=== PATIENT | male | born 1965 | race Caucasian/White ===

== ENCOUNTER 2021-02-05 06:04 | Inpatient (IN) | payer MEDICARE, MEDICAID ==
[~2021-02-05] VITALS: Ht 167.6 cm; Wt 90.8 kg
[~2021-02-05 06:04] MED LIST: AMLO-483 PO; ASPI81CH59 PO; DOXY-340 PO; ENAL5TAB10 PO; INSU100I26 SC; INSU1INJ19 SC; SIMV-8 PO
[2021-02-05] MEDS ORDERED: CELECOXIB 100 MG CAP PO ONE (07:00)
[2021-02-05] MEDS ORDERED: ACETAMINOPHEN IV 1000 MG/100ML (10MG/ML) IV ONE (07:00)
[2021-02-05] MEDS ORDERED: PREGABALIN CAPSULE 75 MG CAP PO ONE (07:00)
[2021-02-05] MEDS ORDERED: ceFAZolin 1GM/50ML 100 ML IV ONE (07:10)
[2021-02-05] MEDS ORDERED: BUPIVACAINE HCL 0.25% P/F 10 ML VIAL ONE ×2 (07:13→10:52)
[2021-02-05] MEDS ORDERED: MIDAZOLAM HCL 1MG/1ML-2 ML VIAL ONE (12:00)
[2021-02-05] MEDS ORDERED: fentaNYL CITRATE 100 MCG/2 ML VL ONE (12:02)
[2021-02-05] MEDS ORDERED: PROPOFOL 10 MG/ML 20 ML IV ONE (12:18)
[2021-02-05] MEDS ORDERED: VANCOMYCIN HCL 1000 MG VL ONE (13:14)
[2021-02-05] MEDS ORDERED: DEXTROSE (50%) 50ML SYRG IV PRN ×2 (14:00→16:45)
[2021-02-05] MEDS: SODIUM CHLOR 0.9% PF (SALINE LOCK) 10ML VIAL/SYR IV SCH ×2 (14:00→22:00)
[2021-02-05] MEDS ORDERED: ONDANSETRON HCL 4 MG/2 ML VIAL IV PRN ×2 (14:00→14:15)
[2021-02-05] MEDS ORDERED: NITROGLYCERIN 0.4 MG SL TAB SL PRN (14:00)
[2021-02-05] MEDS ORDERED: LACTATED RINGER'S 1,000 ML IV SCH (14:00)
[2021-02-05] MEDS ORDERED: MORPHINE SULF INJ 2 MG/ML SYRINGE 1ML IV PRN (14:00)
[2021-02-05] MEDS ORDERED: HYDROmorphone HCL 2 MG/ML VL IV PRN (14:15)
[2021-02-05] MEDS ORDERED: amLODIPine BESYLATE 5 MG TAB PO SCH (15:30)
[2021-02-05 15:53] LABS: Basophils # (auto) 0 10 ^3/uL (0-0.2); Eosinophils # (auto) 0.1 10 ^3/uL (0-0.8); Monocytes # (auto) 0.4 10 ^3/uL (0-1.3); Neutrophils # (auto) 2.7 10 ^3/uL (1.6-8.6); Nucleated Red Blood Cells % 0.1 %
[2021-02-05 15:55] LABS: Basophils % (auto) 0.7 % (0.0-2.0); Hematocrit 34.8 % (41.0-53.0); Hemoglobin 11.5 g/dL (13.5-17.5); Lymphocytes # (auto) 1.7 10 ^3/uL (0.4-5.4); Lymphocytes % (auto) 35.4 % (10.0-50.0); Mean Corpuscular Hemoglobin 26.1 pg (28.0-32.0); Mean Corpuscular Hgb Conc. 33.2 g/dL (32.0-36.0); Mean Corpuscular Volume 78.5 fL (80.0-100.0); Monocytes % (auto) 7.6 % (0.0-12.0); Neutrophils % (auto) 54.3 % (37.0-80.0); Platelet Count (auto) 203 10^3/uL (140-450); Red Blood Cells 4.43 10^6/uL (4.5-5.90); Red Cell Distribution Width 15.8 % (11.8-14.3); White Blood Cell 4.9 10^3/uL (4.4-10.8)
[2021-02-05 16:16] LABS: BUN/Creatinine Ratio 27.6; Calcium 8.9 mg/dL (8.5-10.1)
[2021-02-05] MEDS ORDERED: amLODIPine BESYLATE 5 MG TAB PO ONE (16:45)
[2021-02-05] MEDS ORDERED: SODIUM ZIRCONIUM CYCL 10 GM PAK PO ONE (16:45)
[2021-02-05] MEDS ORDERED: DEXTROSE (50%) 50ML SYRG IV ONE (16:45)
[2021-02-05] MEDS ORDERED: InsuLIN REG 1unit/0.01ml Soln (100units/ml) IV ONE (16:45)
[2021-02-05] MEDS ORDERED: CALCIUM GLUC 1,000mg/50ml-NS 50 ML IV ONE (16:45)
[2021-02-05 17:00] VITALS: BP 142/78
[2021-02-05] MEDS: InsuLIN REG 1unit/0.01ml Soln (100units/ml) SC SCH ×2 (17:00→21:50)
[2021-02-05] MEDS ORDERED: InsuLIN REG 1unit/0.01ml Soln (100units/ml) SC SCH ×2 (17:00→22:00)
[2021-02-05] MEDS ORDERED: ACCU-CHEK COMFORT CURVE STRIP VI SCH ×2 (17:00)
[2021-02-05] MEDS: ACCU-CHEK COMFORT CURVE STRIP VI SCH ×2 (17:00→21:59)
[2021-02-05] MEDS: ceFAZolin 1GM/50ML 50 ML IV SCH (18:38)
[2021-02-05] MEDS: OXYCODONE W/ ACETAMINOPHEN 5/325MG TABLET PO PRN (20:00)
[2021-02-05 20:55] VITALS: BP 156/92
[2021-02-05] MEDS: DOXYCYCLINE 100 MG TAB/CAP PO SCH (21:59)
[2021-02-05] MEDS ORDERED: INSULIN GLARGINE 35 UNIT SC SCH (22:00)
[2021-02-05] MEDS ORDERED: ENALAPRIL MALEATE 10 MG TAB PO SCH (22:00)
[2021-02-05] MEDS: ATORVASTATIN 20 MG TAB PO SCH (22:00)
[2021-02-05] MEDS: DOCUSATE SOD 100 MG CAP PO SCH (22:00)
[2021-02-06] MEDS: ceFAZolin 1GM/50ML 50 ML IV SCH ×2 (00:19→06:27)
[2021-02-06 05:00] VITALS: BP 159/83
[2021-02-06 05:45] LABS: Hematocrit 35.1 % (41.0-53.0); Hemoglobin 12.1 g/dL (13.5-17.5)
[2021-02-06] MEDS: InsuLIN REG 1unit/0.01ml Soln (100units/ml) SC SCH ×4 (06:26→22:34)
[2021-02-06] MEDS: ACCU-CHEK COMFORT CURVE STRIP VI SCH ×4 (06:26→22:28)
[2021-02-06] MEDS: SODIUM CHLOR 0.9% PF (SALINE LOCK) 10ML VIAL/SYR IV SCH ×3 (06:26→22:00)
[2021-02-06 07:39] LABS: Potassium 5.8 mmol/L (3.5-5.1)
[2021-02-06 07:41] LABS: Anion Gap 3 (5-15); BUN/Creatinine Ratio 22.8; Blood Urea Nitrogen 21 mg/dL (7-18); Carbon Dioxide 27 mmol/L (21-32); Chloride 108 mmol/L (98-107); GFR African American 110 mL/min; GFR Non-African American 91 mL/min; Glucose 123 mg/dL (74-106); Sodium 138 mmol/L (136-145)
[2021-02-06 07:42] LABS: Alkaline Phosphatase 76 U/L (45-117); Aspartate Aminotransferase 24 U/L (15-37)
[2021-02-06 07:43] LABS: Potassium 5.7 mmol/L (3.5-5.1)
[2021-02-06 07:46] LABS: Alanine Aminotransferase 18 U/L (16-61); Albumin 2.9 g/dL (3.4-5.0); Bilirubin, Total 0.5 mg/dL (0.2-1.0); Calcium 8.7 mg/dL (8.5-10.1); Total Protein 6.2 g/dL (6.4-8.2)
[2021-02-06 08:58] VITALS: BP 159/87
[2021-02-06] MEDS: DOXYCYCLINE 100 MG TAB/CAP PO SCH ×2 (09:33→22:09)
[2021-02-06] MEDS: ASPirin 81 mg TAB PO SCH (09:33)
[2021-02-06] MEDS: DOCUSATE SOD 100 MG CAP PO SCH ×2 (09:33→22:10)
[2021-02-06] MEDS: ENOXAPARIN SOD 40 MG/0.4 ML SYRINGE SC SCH (09:34)
[2021-02-06] MEDS: OXYCODONE W/ ACETAMINOPHEN 5/325MG TABLET PO PRN (09:35)
[2021-02-06] MEDS ORDERED: amLODIPine BESYLATE 5 MG TAB PO SCH (10:00)
[2021-02-06] MEDS ORDERED: hydrALAZINE HCL 20 MG/ML VL IV PRN (11:45)
[2021-02-06] MEDS ORDERED: amLODIPine BESYLATE 5 MG TAB PO ONE (11:45)
[2021-02-06 12:58] LABS: Urine Bacteria NONE SEEN /hpf (None Seen); Urine Blood Negative /uL (Negative); Urine Specific Gravity 1.006 (1.001-1.035); Urine WBC <1 /hpf (0 - 3)
[2021-02-06 13:00] VITALS: BP 157/88
[2021-02-06] MEDS: SODIUM ZIRCONIUM CYCL 10 GM PAK PO SCH ×2 (14:00→22:09)
[2021-02-06] MEDS: MORPHINE SULF INJ 2 MG/ML SYRINGE 1ML IV PRN ×2 (16:52→23:07)
[2021-02-06 17:04] VITALS: BP 138/73
[2021-02-06 19:15] LABS: INR 1.05 (0.9-1.15); Partial Thromboplastin Time 31.7 sec (23.0-31.2)
[2021-02-06] MEDS ORDERED: LIDOCAINE 1% (LOCAL ANESTH.) PF 5ml SDV ID ONE (21:00)
[2021-02-06 22:00] VITALS: BP 160/71
[2021-02-06] MEDS: ATORVASTATIN 20 MG TAB PO SCH (22:10)
[2021-02-07] MEDS: SODIUM CHLOR 0.9% PF (SALINE LOCK) 10ML VIAL/SYR IV SCH ×6 (00:49→22:00)
[2021-02-07] MEDS: MORPHINE SULF INJ 2 MG/ML SYRINGE 1ML IV PRN ×3 (03:59→13:43)
[2021-02-07 05:00] VITALS: BP 141/71
[2021-02-07] MEDS: SODIUM ZIRCONIUM CYCL 10 GM PAK PO SCH ×3 (06:09→21:35)
[2021-02-07] MEDS: ACCU-CHEK COMFORT CURVE STRIP VI SCH ×4 (06:09→21:35)
[2021-02-07] MEDS: InsuLIN REG 1unit/0.01ml Soln (100units/ml) SC SCH ×4 (06:20→21:39)
[2021-02-07 06:42] LABS: Basophils # (auto) 0 10 ^3/uL (0-0.2); Basophils % (auto) 0.7 % (0.0-2.0); Eosinophils # (auto) 0.1 10 ^3/uL (0-0.8); Eosinophils % (auto) 1.8 % (0.0-7.0); Hematocrit 32.9 % (41.0-53.0); Hemoglobin 10.9 g/dL (13.5-17.5); Lymphocytes # (auto) 1.5 10 ^3/uL (0.4-5.4); Lymphocytes % (auto) 27.7 % (10.0-50.0); Mean Corpuscular Hemoglobin 25.9 pg (28.0-32.0); Mean Corpuscular Hgb Conc. 33.2 g/dL (32.0-36.0); Mean Corpuscular Volume 78.1 fL (80.0-100.0); Monocytes # (auto) 0.6 10 ^3/uL (0-1.3); Monocytes % (auto) 10.4 % (0.0-12.0); Neutrophils # (auto) 3.2 10 ^3/uL (1.6-8.6); Neutrophils % (auto) 59.4 % (37.0-80.0); Nucleated Red Blood Cells % 0.1 %; Platelet Count (auto) 203 10^3/uL (140-450); Red Blood Cells 4.21 10^6/uL (4.5-5.90); Red Cell Distribution Width 15.4 % (11.8-14.3); White Blood Cell 5.3 10^3/uL (4.4-10.8)
[2021-02-07 07:03] LABS: Calcium 8.9 mg/dL (8.5-10.1); Potassium 4.7 mmol/L (3.5-5.1)
[2021-02-07 09:00] VITALS: BP 158/77
[2021-02-07] MEDS: ASPirin 81 mg TAB PO SCH (09:23)
[2021-02-07] MEDS: DOCUSATE SOD 100 MG CAP PO SCH ×2 (09:23→21:35)
[2021-02-07] MEDS: amLODIPine BESYLATE 5 MG TAB PO SCH (09:23)
[2021-02-07] MEDS: DOXYCYCLINE 100 MG TAB/CAP PO SCH (09:23)
[2021-02-07] MEDS: ENOXAPARIN SOD 40 MG/0.4 ML SYRINGE SC SCH (09:24)
[2021-02-07] MEDS: OXYCODONE W/ ACETAMINOPHEN 5/325MG TABLET PO PRN ×3 (11:37→22:17)
[2021-02-07 13:00] VITALS: BP 137/76
[2021-02-07] MEDS: AMPICILLIN & SULBACTAM SODIUM 3 GM in SODIUM CHL 0.9% 100 ML IV SCH ×2 (15:51→21:33)
[2021-02-07 17:00] VITALS: BP 143/81
[2021-02-07] MEDS: ATORVASTATIN 20 MG TAB PO SCH (21:35)
[2021-02-07 22:00] VITALS: BP 118/68
[2021-02-08] MEDS: MORPHINE SULF INJ 2 MG/ML SYRINGE 1ML IV PRN ×2 (01:52→08:58)
[2021-02-08] MEDS: AMPICILLIN & SULBACTAM SODIUM 3 GM in SODIUM CHL 0.9% 100 ML IV SCH ×4 (03:42→22:19)
[2021-02-08 04:41] VITALS: BP 163/78
[2021-02-08] MEDS: SODIUM CHLOR 0.9% PF (SALINE LOCK) 10ML VIAL/SYR IV SCH ×5 (05:44→22:20)
[2021-02-08] MEDS: SODIUM ZIRCONIUM CYCL 10 GM PAK PO SCH (06:28)
[2021-02-08] MEDS: InsuLIN REG 1unit/0.01ml Soln (100units/ml) SC SCH ×4 (06:28→22:22)
[2021-02-08] MEDS: ACCU-CHEK COMFORT CURVE STRIP VI SCH ×4 (06:28→22:21)
[2021-02-08 08:00] VITALS: BP 154/74
[2021-02-08 08:13] LABS: Potassium 4.2 mmol/L (3.5-5.1)
[2021-02-08 08:19] LABS: BUN/Creatinine Ratio 18.9; Calcium 8.8 mg/dL (8.5-10.1)
[2021-02-08 08:36] LABS: Hematocrit 34.5 % (41.0-53.0); Hemoglobin 11.4 g/dL (13.5-17.5)
[2021-02-08] MEDS: DOCUSATE SOD 100 MG CAP PO SCH ×2 (08:57→22:20)
[2021-02-08] MEDS: ASPirin 81 mg TAB PO SCH (08:58)
[2021-02-08] MEDS: amLODIPine BESYLATE 5 MG TAB PO SCH (08:58)
[2021-02-08] MEDS: ENOXAPARIN SOD 40 MG/0.4 ML SYRINGE SC SCH (08:58)
[2021-02-08] MEDS: OXYCODONE W/ ACETAMINOPHEN 5/325MG TABLET PO PRN ×2 (11:20→22:24)
[2021-02-08 12:00] VITALS: BP 129/69
[2021-02-08 16:00] VITALS: BP 121/75
[2021-02-08 22:00] VITALS: BP 136/69
[2021-02-08] MEDS: ATORVASTATIN 20 MG TAB PO SCH (22:20)
[2021-02-09] MEDS: AMPICILLIN & SULBACTAM SODIUM 3 GM in SODIUM CHL 0.9% 100 ML IV SCH ×4 (03:25→21:32)
[2021-02-09 05:00] VITALS: BP 121/67
[2021-02-09] MEDS: SODIUM CHLOR 0.9% PF (SALINE LOCK) 10ML VIAL/SYR IV SCH ×5 (06:28→21:29)
[2021-02-09] MEDS: ACCU-CHEK COMFORT CURVE STRIP VI SCH ×4 (06:28→21:32)
[2021-02-09] MEDS: InsuLIN REG 1unit/0.01ml Soln (100units/ml) SC SCH ×4 (06:29→21:39)
[2021-02-09 07:17] LABS: Basophils # (auto) 0 10 ^3/uL (0-0.2); Basophils % (auto) 0.6 % (0.0-2.0); Eosinophils # (auto) 0.1 10 ^3/uL (0-0.8); Eosinophils % (auto) 2.3 % (0.0-7.0); Hemoglobin 11.3 g/dL (13.5-17.5); Lymphocytes # (auto) 1.4 10 ^3/uL (0.4-5.4); Monocytes # (auto) 0.4 10 ^3/uL (0-1.3); White Blood Cell 4.8 10^3/uL (4.4-10.8)
[2021-02-09 07:20] LABS: Hematocrit 33.3 % (41.0-53.0); Lymphocytes % (auto) 30.2 % (10.0-50.0); Mean Corpuscular Hemoglobin 26.4 pg (28.0-32.0); Mean Corpuscular Hgb Conc. 33.9 g/dL (32.0-36.0); Mean Corpuscular Volume 77.8 fL (80.0-100.0); Monocytes % (auto) 7.9 % (0.0-12.0); Neutrophils # (auto) 2.8 10 ^3/uL (1.6-8.6); Nucleated Red Blood Cells % 0.1 %; Platelet Count (auto) 232 10^3/uL (140-450); Red Blood Cells 4.29 10^6/uL (4.5-5.90); Red Cell Distribution Width 15.3 % (11.8-14.3)
[2021-02-09 07:32] LABS: INR 1.01 (0.9-1.15); Partial Thromboplastin Time 32.3 sec (23.0-31.2)
[2021-02-09 07:37] LABS: Potassium 4.3 mmol/L (3.5-5.1)
[2021-02-09 07:49] LABS: Albumin 2.9 g/dL (3.4-5.0); BUN/Creatinine Ratio 19.5; Bilirubin, Total 0.6 mg/dL (0.2-1.0); Calcium 8.6 mg/dL (8.5-10.1); Phosphorus 2.9 mg/dL (2.5-4.90); Total Protein 6.8 g/dL (6.4-8.2)
[2021-02-09 08:00] VITALS: BP 138/73
[2021-02-09] MEDS: ASPirin 81 mg TAB PO SCH (08:39)
[2021-02-09] MEDS: DOCUSATE SOD 100 MG CAP PO SCH ×2 (08:44→21:32)
[2021-02-09] MEDS: amLODIPine BESYLATE 5 MG TAB PO SCH (08:45)
[2021-02-09] MEDS: ENOXAPARIN SOD 40 MG/0.4 ML SYRINGE SC SCH (08:45)
[2021-02-09] MEDS: MORPHINE SULF INJ 2 MG/ML SYRINGE 1ML IV PRN ×2 (08:53→15:50)
[2021-02-09 11:48] VITALS: BP 119/62
[2021-02-09 16:00] VITALS: BP 113/59
[2021-02-09] MEDS: ATORVASTATIN 20 MG TAB PO SCH (21:32)
[2021-02-09] MEDS: OXYCODONE W/ ACETAMINOPHEN 5/325MG TABLET PO PRN (21:33)
[2021-02-09 22:00] VITALS: BP 130/67
[2021-02-10] MEDS: AMPICILLIN & SULBACTAM SODIUM 3 GM in SODIUM CHL 0.9% 100 ML IV SCH ×4 (03:34→21:59)
[2021-02-10 05:00] VITALS: BP 141/72
[2021-02-10] MEDS: SODIUM CHLOR 0.9% PF (SALINE LOCK) 10ML VIAL/SYR IV SCH ×5 (06:04→21:59)
[2021-02-10] MEDS: ACCU-CHEK COMFORT CURVE STRIP VI SCH ×4 (06:32→21:39)
[2021-02-10] MEDS: InsuLIN REG 1unit/0.01ml Soln (100units/ml) SC SCH ×4 (06:34→21:57)
[2021-02-10 06:42] LABS: Basophils # (auto) 0 10 ^3/uL (0-0.2); Eosinophils # (auto) 0.1 10 ^3/uL (0-0.8); Lymphocytes # (auto) 1.3 10 ^3/uL (0.4-5.4); Monocytes # (auto) 0.4 10 ^3/uL (0-1.3)
[2021-02-10 06:48] LABS: Basophils % (auto) 0.8 % (0.0-2.0); Eosinophils % (auto) 2.3 % (0.0-7.0); Hematocrit 29.3 % (41.0-53.0); Mean Corpuscular Hemoglobin 26.4 pg (28.0-32.0); Mean Corpuscular Hgb Conc. 34.3 g/dL (32.0-36.0); Mean Corpuscular Volume 77.1 fL (80.0-100.0); Monocytes % (auto) 7.1 % (0.0-12.0); Neutrophils # (auto) 3.5 10 ^3/uL (1.6-8.6); Neutrophils % (auto) 64.8 % (37.0-80.0); Nucleated Red Blood Cells % 0.1 %; Platelet Count (auto) 244 10^3/uL (140-450); Red Cell Distribution Width 15.3 % (11.8-14.3); White Blood Cell 5.4 10^3/uL (4.4-10.8)
[2021-02-10 06:58] LABS: INR 1.01 (0.9-1.15); Partial Thromboplastin Time 30.6 sec (23.0-31.2)
[2021-02-10 07:01] LABS: Albumin 2.8 g/dL (3.4-5.0); Calcium 8.6 mg/dL (8.5-10.1); Potassium 4.2 mmol/L (3.5-5.1)
[2021-02-10 07:04] LABS: BUN/Creatinine Ratio 24.4; Bilirubin, Total 0.5 mg/dL (0.2-1.0); Phosphorus 2.9 mg/dL (2.5-4.90); Total Protein 6.4 g/dL (6.4-8.2)
[2021-02-10 08:00] VITALS: BP 148/80
[2021-02-10] MEDS: OXYCODONE W/ ACETAMINOPHEN 5/325MG TABLET PO PRN (08:43)
[2021-02-10] MEDS: DOCUSATE SOD 100 MG CAP PO SCH ×2 (09:49→21:59)
[2021-02-10] MEDS: ASPirin 81 mg TAB PO SCH (09:49)
[2021-02-10] MEDS: ENOXAPARIN SOD 40 MG/0.4 ML SYRINGE SC SCH (09:50)
[2021-02-10] MEDS: amLODIPine BESYLATE 5 MG TAB PO SCH (09:50)
[2021-02-10 12:00] VITALS: BP 133/73
[2021-02-10 16:00] VITALS: BP 123/72
[2021-02-10] MEDS: ATORVASTATIN 20 MG TAB PO SCH (21:58)
[2021-02-10 22:00] VITALS: BP 154/70
[2021-02-11] MEDS: OXYCODONE W/ ACETAMINOPHEN 5/325MG TABLET PO PRN (00:07)
[2021-02-11] MEDS: AMPICILLIN & SULBACTAM SODIUM 3 GM in SODIUM CHL 0.9% 100 ML IV SCH ×3 (02:51→15:19)
[2021-02-11 05:00] VITALS: BP 119/61
[2021-02-11] MEDS: SODIUM CHLOR 0.9% PF (SALINE LOCK) 10ML VIAL/SYR IV SCH ×3 (06:09→14:00)
[2021-02-11] MEDS: ACCU-CHEK COMFORT CURVE STRIP VI SCH ×3 (06:09→16:58)
[2021-02-11] MEDS: InsuLIN REG 1unit/0.01ml Soln (100units/ml) SC SCH ×3 (06:23→16:58)
[2021-02-11 08:53] VITALS: BP 146/76
[2021-02-11] MEDS: ASPirin 81 mg TAB PO SCH (10:00)
[2021-02-11] MEDS: amLODIPine BESYLATE 5 MG TAB PO SCH (10:00)
[2021-02-11] MEDS: DOCUSATE SOD 100 MG CAP PO SCH (10:00)
[2021-02-11] MEDS: ENOXAPARIN SOD 40 MG/0.4 ML SYRINGE SC SCH (10:00)
[2021-02-11 12:11] VITALS: BP 148/79
[2021-02-11 16:17] VITALS: BP 132/78
[2021-02-11 16:44] VITALS: BP 148/73
== END 2021-02-11 18:45 | disposition home health service (06) | DRG 475 ==
LOC: SUR 06:04 → TELE-EAST 13:51 → EAST 02-10 11:34
PROVIDERS: ADMIT Orthopaedic Surgery Adult Reconstructive Orthopaedic Surgery; ATTEND Internal Medicine
PROC: 0Y6J0Z1 Detachment at Left Lower Leg, High, Open Approach (ICD-10-PCS; 2021-02-05)
PROC: 02HV33Z Insertion of Infusion Device into Superior Vena Cava, Percutaneous Approach (ICD-10-PCS; principal; 2021-02-06)
PROC: B548ZZA Ultrasonography of Superior Vena Cava, Guidance (ICD-10-PCS; 2021-02-06)
DX: T87.44 Infection of amputation stump, left lower extremity (principal); M86.8X6 Other osteomyelitis, lower leg; E11.69 Type 2 diabetes mellitus with other specified complication; E87.5 Hyperkalemia; I10 Essential (primary) hypertension; E66.9 Obesity, unspecified; A49.1 Streptococcal infection, unspecified site; E78.5 Hyperlipidemia, unspecified; M17.10 Unilateral primary osteoarthritis, unspecified knee; E11.65 Type 2 diabetes mellitus with hyperglycemia; Z82.49 Family history of ischemic heart disease and other diseases of the circulatory system; Z82.5 Family history of asthma and other chronic lower respiratory diseases; Z83.3 Family history of diabetes mellitus; Z68.32 Body mass index [BMI] 32.0-32.9, adult; Z79.82 Long term (current) use of aspirin; Z79.4 Long term (current) use of insulin; Y92.89 Other specified places as the place of occurrence of the external cause
CPT/HCPCS: 36415; 36569; 71045; 73562; 80048; 80053; 81001; 82962; 83036; 83735; 84100; 84132; 85014; 85018; 85025; 85610; 85730; 87070; 87075; 87081; 87205; G0378; J0131; J0690; J1815; J2250; J2704; J3490